=== PATIENT | female | born 1960 | race Caucasian/White ===

== ENCOUNTER 2018-03-01 18:26 | Emergency (ER) | payer OTHER ==
[2018-03-01] MEDS ORDERED: Ketorolac Tromethamine 30 MG/ML VIAL ONE (19:28)
[2018-03-01] MEDS ORDERED: Ondansetron ODT 4 MG TAB ONE (19:28)
[2018-03-01 19:34] LABS: #Eosinphils 0.9 thou/uL (0.0-0.7); #Lymphocytes 2.1 thou/uL (1.20-3.40); #Monocytes 0.6 thou/uL (0.11-0.59); #Neutrophils 2.7 thou/uL (1.40-6.50); %Basophils 0.6 % (0.0-1.0); %Eosinophils 14.7 % (0.0-10.0); %Lymphocytes 32.9 % (21.0-51.0); %Monocytes 9.3 % (0.0-10.0); %Neutrophils 42.6 % (42.0-75.0); Hemoglobin 11.8 g/dL (12.0-16.0); Large Platelets SLIGHT; MDiff Complete? YES; Mean Corpuscular Hemoglobin 29.5 pg (27.0-31.0); Mean Corpuscular Volume 89.4 fl (81.0-99.0); Mean Platelet Volume 9.4 fL (7.4-10.4); PLT Morphology Comment Appears Adequate; Platelet Count 209 thou/uL (130-400); RBC Distribution Width 12.3 % (11.5-14.5); RBC Morphology Normal; Red Blood Cell (RBC) Count 3.99 mill/uL (4.20-5.40); White Blood Cell (WBC) Count 6.3 thou/uL (4.8-10.8)
[2018-03-01 19:39] LABS: ALT (SGPT) 19 U/L (8-55); AST (SGOT) 25 U/L (5-34); Albumin 4.2 g/dL (3.5-5.0); Alkaline Phosphatase 138 U/L (40-150); Anion Gap 13 mmol/L (10-20); BUN (Urea Nitrogen) 12 mg/dL (9.8-20.1); Bilirubin, Total 0.3 mg/dL (0.2-1.2); Calc. Creatinine Clearance 0 mL/min (70-130); Calcium 9.4 mg/dL (7.8-10.44); Carbon Dioxide 27 mmol/L (22-29); Chloride 97 mmol/L (98-107); Estimated GFR-MDRD 68; Globulin 3.4 g/dL (2.4-3.5); Glucose 93 mg/dL (70-105); Potassium 5.1 mmol/L (3.5-5.1); Protein, Total 7.6 g/dL (6.0-8.3); Sodium 132 mmol/L (136-145)
[2018-03-01] MEDS ORDERED: Acetaminophen 500 MG TAB ONE (20:30)
--- NOTE | 2018-03-01 20:59 | RAD ---
CHEST ONE VIEW: HISTORY: Cough. FINDINGS: Portable one view chest shows a normal cardiac silhouette. The pulmonary vessels and hilum are nia l. No mass. No consolidation. No pneumothorax or osseous abnormalities. IMPRESSION: No acute cardiopulmonary process. POS: [facility]
== END 2018-03-01 21:25 | disposition home or self-care (01) ==
LOC: ERS 18:26
DX: B34.9 Viral infection, unspecified (principal); I10 Essential (primary) hypertension; F41.9 Anxiety disorder, unspecified; F32.9 Major depressive disorder, single episode, unspecified; F17.210 Nicotine dependence, cigarettes, uncomplicated; Z79.899 Other long term (current) drug therapy
CPT/HCPCS: 36415; 71045; 80053; 85025; 87804; 96372; J1885; Q0162

== ENCOUNTER 2018-11-26 15:43 | Inpatient (IN) | payer OTHER ==
[~2018-11-26 15:43] MED LIST: ISOVUE-370 76%-LOCM 1 ML ONE
[2018-11-26 16:33] LABS: #Basophils 0.1 thou/uL (0.0-0.2); #Eosinphils 0.3 thou/uL (0.0-0.7); #Lymphocytes 2.2 thou/uL (1.20-3.40); #Monocytes 0.4 thou/uL (0.11-0.59); #Neutrophils 4.4 thou/uL (1.40-6.50); %Eosinophils 4.5 % (0.0-10.0); %Lymphocytes 29.4 % (21.0-51.0); %Monocytes 5.5 % (0.0-10.0); %Neutrophils 59.6 % (42.0-75.0); Hemoglobin 10.9 g/dL (12.0-16.0); Mean Corpuscular HGB CONC 32.6 g/dL (32.0-36.0); Mean Corpuscular Hemoglobin 30.1 pg (27.0-31.0); Mean Corpuscular Volume 92.2 fL (78.0-98.0); Mean Platelet Volume 9.6 fL (7.4-10.4); Platelet Count 219 thou/uL (130-400); RBC Distribution Width 12.2 % (11.5-14.5); Red Blood Cell (RBC) Count 3.62 mill/uL (4.20-5.40); White Blood Cell (WBC) Count 7.3 thou/uL (4.8-10.8)
[2018-11-26 16:37] LABS: Bilirubin Negative (Negative); Blood, Urine Negative (Negative); Clarity CLEAR (Clear); Glucose, Urine (Dipstick) Negative (Negative); Leukocyte Negative (Negative); Nitrite Negative (Negative); Protein, Urine (Dipstick) Negative (Neg-Trace); Specific Gravity, Urine 1.028 (1.002-1.036); Urobilinogen 0.2 mg/dL (0.2-1.0)
--- NOTE | 2018-11-26 16:46 | RAD ---
CHEST 2 VIEWS: Date: 11/26/18 HISTORY: Dyspnea. FINDINGS: Cardiac silhouette and pulmonary vasculature are unremarkable. Mediastinum is midline. No confluent a ir space consolidation, pneumothorax, or pleural fluid are apparent. Leftward curvature of the upper thoracic spine. IMPRESSION: No active cardiopulmonary abnormalities are demonstrated. POS: [facility]
[2018-11-26 16:52] LABS: ALT (SGPT) 9 U/L (8-55); AST (SGOT) 12 U/L (5-34); Albumin 3.9 g/dL (3.5-5.0); Alkaline Phosphatase 112 U/L (40-150); Anion Gap 15 mmol/L (10-20); BUN (Urea Nitrogen) 20 mg/dL (9.8-20.1); Bilirubin, Total 0.2 mg/dL (0.2-1.2); CK (CPK) 100 U/L (29-168); Calc. Creatinine Clearance 0 mL/min (70-130); Calcium 9.4 mg/dL (7.8-10.44); Carbon Dioxide 23 mmol/L (22-29); Chloride 107 mmol/L (98-107); Estimated GFR-MDRD 65; Globulin 2.5 g/dL (2.4-3.5); Glucose 99 mg/dL (70-105); Potassium 4.7 mmol/L (3.5-5.1); Protein, Total 6.4 g/dL (6.0-8.3); Sodium 140 mmol/L (136-145)
[2018-11-26] MEDS ORDERED: Ondansetron PF 4 MG/2 ML Vial ONE (17:56)
[2018-11-26] MEDS ORDERED: Morphine 4 MG/ML VIAL ONE ×2 (17:57→19:46)
[2018-11-26] MEDS ORDERED: Clindamycin/D5W 600 mg/50 ml Premix Bag ONE (18:57)
--- NOTE | 2018-11-26 19:40 | PDOC.FPRHP ---
- History of Present Illness Chief Complaint: swelling under chin History of Present Illness: 58 yo F with PMH of paroxysmal afib, HTN, remote methamphetamine use, depression and anxiety presents for sharp pain in jaw and painful swelling under her chin that has been increasing in size for one week. It started as a spot on her gums below the lower left canine tooth, then developed into painful growth that is submental. She went to her PCP Dr. San 1 week ago, and was put on clindamycin which she has been taking. She then went to [facility] in [place], they told her to see her PCP. She then went to a doctor here in [facility], which sent her to Dr. Rios ENT. Dr. Banks sent her to [place] ED. She has headache, fever up to 101. Reports she has been able to eat soft foods, and has been drinking fluids. In the ED, CT showed abscess. Dr. Ying of [facility] was consulted. She was started on clinda 600 mg IV q6 hrs, and decadron 8 mg q8 hrs on his recommendations. - Allergies/Adverse Reactions Allergies Allergy/AdvReac Type Severity Reaction Status Date / Time ketorolac [From Toradol] Allergy Severe Short of Verified 11/27/18 04:17 Breath aspirin Allergy Mild Stomach Verified 11/27/18 04:17 Ache butorphanol [From Stadol] Allergy Unknown Anxiety Verified 11/27/18 06:07 Penicillins Allergy Unknown Rash Verified 11/27/18 04:17 - Home Medications Medication Instructions Recorded Confirmed Type Clindamycin [Cleocin] 300 mg PO Q6HR 11/27/18 11/27/18 History Cyclobenzaprine [Flexeril] 5 mg PO TID 11/27/18 11/27/18 History FLUoxetine HCl [Prozac] 60 mg PO DAILY 11/27/18 11/27/18 History HYDROcodone/Acetaminophen [[place] 1 tab PO Q4HR PRN 11/27/18 11/27/18 History 10-325 Tablet] Lisinopril 20 mg PO DAILY 11/27/18 11/27/18 History Metoprolol Succinate 100 mg PO DAILY 11/27/18 11/27/18 History Pantoprazole [Protonix] 40 mg PO DAILY 11/27/18 11/27/18 History clonazePAM [Clonazepam] 1 mg PO BID 11/27/18 11/27/18 History - History PMHx: Mitral valve prolapse, paroxysmal afib, HTN, depression and anxiety, chronic lower back pain, hx of stomach ulcers, hx of methamphetamine use, "stretched esophagus", Rt carpal tunnel PSHx: cholecystectomy, rhinoplasty, appendectomy, carpal tunnel, tonsillectomy FHx: [place] father age 50 colon cancer maternal grandmother Diabetes maternal grandmother Social: smokes 1/2 pack for past 27 years (13 PY), no alcohol or current drug use. Past use of methamphetamine. Denies IV drug use - Review of Systems General: reports: fever/chills, weight/appetite/sleep changes Eyes: denies: eye pain, vision changes ENT: reports: nasal congestion. denies: rhinorrhea Respiratory: reports: cough, congestion. denies: shortness of breath, exercise intolerance Cardiovascular: denies: chest pain, palpitation, edema Gastrointestinal: reports: diarrhea (earlier this week). denies: nausea, vomiting, constipation, abdominal pain, GI bleeding Genitourinary: denies: dysuria, other Skin: reports: other (painfull swelling under chin). denies: rashes Musculoskeletal: reports: pain, tenderness Neurological: reports: numbness (Rt hand intermittently (carpal tunnel)). denies: weakness Psychological: reports: anxiety, depression - Vital signs BP: [127/81] HR: [75] RR: [16] Tmax: [97.9] Pox: [100]% on [RA] Wt: [72.57 kg ] - Physical Exam Constitutional: awake, alert and oriented, well developed, other (In pain, holding face) HEENT: PERRLA, EOMI, conjunctiva clear, grossly normal hearing, MMM, oropharynx clear, other (very poor dentition, missing many teeth) Neck: supple, other (painful swelling under chin, tender and non-erythematous) Heart: RRR, normal S1/S2, no murmurs/rubs/gallops Lungs: CTAB, no respiratory distress, good air movement, no rales/rhonchi Abdomen: soft, non-tender, bowel sounds present Musculoskeletal: normal structure, normal tone, ROM grossly normal Neurological: no focal deficit, DTRs 2+ Skin: no rash/lesions, good turgor, capillary refill <2 seconds Heme/Lymphatic: no unusual bruising or bleeding, no purpura Psychiatric: normal mood and affect, good judgment and insight, intact recent and remote memory FMR H&P: Results - Labs Result Diagrams: 11/26/18 16:19 11/26/18 16:15 Lab results: WBC 7.3 thou/uL (4.8-10.8) 11/26/18 16:19 Hgb 10.9 g/dL (12.0-16.0) L 11/26/18 16:19 Hct 33.4 % (36.0-47.0) L 11/26/18 16:19 MCV 92.2 fL (78.0-98.0) 11/26/18 16:19 Plt Count 219 thou/uL (130-400) 11/26/18 16:19 Neutrophils % 59.6 % (42.0-75.0) 11/26/18 16:19 Sodium 140 mmol/L (136-145) 11/26/18 16:15 Potassium 4.7 mmol/L (3.5-5.1) 11/26/18 16:15 Chloride 107 mmol/L (98-107) 11/26/18 16:15 Carbon Dioxide 23 mmol/L (22-29) 11/26/18 16:15 BUN 20 mg/dL (9.8-20.1) 11/26/18 16:15 Creatinine 0.89 mg/dL (0.6-1.1) 11/26/18 16:15 Glucose 99 mg/dL (70-105) 11/26/18 16:15 Lactic Acid 1.4 mmol/L (0.5-2.2) 11/26/18 16:19 Calcium 9.4 mg/dL (7.8-10.44) 11/26/18 16:15 Total Bilirubin 0.2 mg/dL (0.2-1.2) 11/26/18 16:15 AST 12 U/L (5-34) 11/26/18 16:15 ALT 9 U/L (8-55) 11/26/18 16:15 Alkaline Phosphatase 112 U/L (40-150) 11/26/18 16:15 Creatine Kinase 100 U/L (29-168) 11/26/18 16:15 Serum Total Protein 6.4 g/dL (6.0-8.3) 11/26/18 16:15 Albumin 3.9 g/dL (3.5-5.0) 11/26/18 16:15 Urine Ketones Negative mg/dL (Negative) 11/26/18 16:30 Urine Blood Negative (Negative) 11/26/18 16:30 Urine Nitrite Negative (Negative) 11/26/18 16:30 Ur Leukocyte Esterase Negative (Negative) 11/26/18 16:30 - EKG Interpretation EKG: NSR - Radiology Interpretation Other Status: image reviewed by me, report reviewed by me Additional comment: small 9x10 mm retromandibular abscess Chest x-ray Status: image reviewed by me, report reviewed by me Additional comment: no acute process FMR H&P: A/P - Problem List (1) Abscess Current Visit: Yes Status: Acute Code(s): L02.91 - CUTANEOUS ABSCESS, UNSPECIFIED (2) Paroxysmal A-fib Current Visit: Yes Status: Chronic Code(s): I48.0 - PAROXYSMAL ATRIAL FIBRILLATION (3) HTN (hypertension) Current Visit: Yes Status: Chronic Code(s): I10 - ESSENTIAL (PRIMARY) HYPERTENSION (4) Anxiety and depression Current Visit: Yes Status: Chronic Code(s): F41.9 - ANXIETY DISORDER, UNSPECIFIED; F32.9 - MAJOR DEPRESSIVE DISORDER, SINGLE EPISODE, UNSPECIFIED (5) Chronic low back pain Current Visit: Yes Status: Chronic Code(s): M54.5 - LOW BACK PAIN; G89.29 - OTHER CHRONIC PAIN (6) History of gastric ulcer Current Visit: Yes Status: Chronic Code(s): Z87.19 - PERSONAL HISTORY OF OTHER DISEASES OF THE DIGESTIVE SYSTEM (7) Tobacco abuse Current Visit: Yes Status: Acute Code(s): Z72.0 - TOBACCO USE - Plan Retromandibular abscess most likely 2/2 dental caries - 9x10 mm on seen on soft tissue CT of neck - CBC and CMP wnl, vital signs stable - OMFS consulted, recommendations appreciated Dr Ying -IV clinda 600 mg q6 hrs, decadron 8 mg q8 hrs -NPO for possible surgery - Morphine for pain control - Tylenol for fever Atrial fibrillation - Continue home metoprolol HTN - Continue home lisinopril Anxiety/Depression - Continue home fluoxetine, hold home clonazepam Chronic back pain - Hold home flexeril as she has not been taking - Hold home hydrocodone Hx of gastric ulcers - Continue home protonix Tobacco abuse - Encourage cessation Diet: NPO for possible surgery DVT ppx: lovenox GI ppx: home protonix PCP: Dr. San in [place], [place] Dispo: admit to medical inpatient, LOS >2 midnights FMR H&P: Upper Level - Pertinent history 58 yo WF PMH tobacco abuse, a-fib, mitral valve prolapse, HTN, and remote history of meth use. Presents with 1 wk history of submandibular abscess. Denies fever. States lesion started along left lower jaw as tooth infection. Has multiple broken teeth and need to have them removed several years ago. Went to PCP who started on clinda and sent to ENT. ENT saw and sent to ER. ER: Labs, CT face, clinda, decadron, morphine, OMFS consultation. - Pertinent findings Vitals: WNL GEN: Mild discomfort. ENT: multiple broken teeth. fluctuant mass posterior to the chin. CV: RRR no murmur Pulm: CTA-B Labs: WNL CXR: No acute processes CT Face: 8 mm x 10 mm fluid collection behind mentum - Plan Date/Time: 11/26/181928 I, Robert Schwarz MD, have evaluated this patient and agree with findings/plan as outlined by sports intern resident. Pertinent changes/additions are listed here. 1. Submandibular abscess: Failed outpatient treatment. continue IV clinda and decadron per OMFS. NPO for upcoming I&D. Morphine PRN for pain. IV LR 125 mL/hr 2. HTN: home meds 3. A-fib: home meds 4. Tobacco abuse: encouraged cessation 5. Diet: NPO 6. PPx: SCD 7. CODE: FULL Dispo: inpatient, medical, >[address] Ngo. Addendum - Attending - Attending Attestation Date/Time: 11/26/18 2580 I personally evaluated the patient and discussed the management with Dr. Ludmila Chery. I agree with the History, Examination, Assessment and Plan documented above with any addition or exceptions noted below. The patient has had submandibular swelling, redness and pain for a week. She has seen multiple physicians before presenting to the ER. CT confirms an abscess. OMFS has been consulted and recommends IV clindamycin and decadron. She has poor dentition which is the likely source for the abscess.
[2018-11-26] MEDS ORDERED: Ondansetron ODT 4 MG TAB PO PRN (19:55)
[2018-11-26] MEDS ORDERED: Acetaminophen 325 MG TAB PO PRN (19:55)
[2018-11-26] MEDS ORDERED: Acetaminophen 650 MG Suppository PR PRN (19:55)
[2018-11-26] MEDS ORDERED: Ondansetron PF 4 MG/2 ML Vial IVP PRN (19:55)
[2018-11-26] MEDS ORDERED: Morphine 2 MG/ML SYRINGE SLOW IVP PRN (19:58)
[2018-11-26] MEDS ORDERED: Enoxaparin Sodium 40 MG/0.4 ML SYRINGE SC SCH ×2 (20:00→22:00)
--- NOTE | 2018-11-26 20:13 | CT ---
CONTRAST ENHANCED CT IMAGES SOFT TISSUE NECK 11/26/18 HISTORY: Abscess of mouth and chest pain. Contrast enhanced CT of the soft tissue neck obtained. Images demonstrate extensive loss of numerous teeth with extensive loss of the mandibular and maxillary molars. Some of the mandibular canines and incisors remain. These are extensively diseased with caries. There is a 9 x 10 mm area of soft tissue hypodensity with peripheral rim of enhancement posterior to the supraspinous foramen of the mid viraj ible. This is compatible with retromandibular abscess. No definite evidence of lymphadenopathy seen. Some of the subcutaneous fat anterior and lateral to the platysma appears to be somewhat edematous, m ost compatible with inflammatory process. No significant evidence of necrotic lymph nodes seen. No si gnificant marked lymphadenopathy seen. The thyroid gland is unremarkable. IMPRESSION: Small retromandibular abscess. I suspect that this abscess may have originated from extensive caries and periapical abscesses originating from the remaining incisor and canine caries of the mandible. POS: [facility]
[2018-11-26] MEDS ORDERED: Morphine 4 MG/ML VIAL SLOW IVP SCH (21:00)
[2018-11-27] MEDS: Morphine 4 MG/ML VIAL SLOW IVP PRN ×5 (00:44→21:33)
[2018-11-27] MEDS: Clindamycin/D5W 600 MG in Premix Bag 1 BAG IVPB SCH ×4 (02:14→20:44)
[2018-11-27 03:46] VITALS: BMI 28.3
--- NOTE | 2018-11-27 05:49 | PDOC.FM ---
- Subjective Subjective: Pt states that she is having some pain this morning in her jaw. She rates the pain as a sharp 8/10 that is worse with movement and talking. She denies fever, chills, nausea, vomiting, or SOB. - Objective MAR Reviewed: Yes Vital Signs & Weight: Vital Signs (12 hours) Temp Pulse Resp BP Pulse Ox 11/27/18 04:18 98.1 F 70 20 114/72 92 L 11/27/18 00:00 98.1 F 72 20 114/72 95 11/26/18 21:30 98.0 F 76 18 126/80 100 Weight Weight 74.843 kg I&O: 11/25/18 11/26/18 11/27/18 06:59 06:59 06:59 Intake Total 111 Balance 111 Result Diagrams: 11/26/18 16:19 11/26/18 16:15 Phys Exam - Physical Examination Constitutional: NAD HEENT: moist MMs poor dentition Neck: no JVD Moderate submandibular swelling, severe tenderness with palpation Warmth associated with swelling Respiratory: no wheezing, no rales, clear to auscultation bilateral Cardiovascular: RRR, no significant murmur, no rub Gastrointestinal: soft, non-tender, no distention, positive bowel sounds Musculoskeletal: no edema, pulses present Neurological: moves all 4 limbs Psychiatric: normal affect, A&O x 3 Skin: cap refill <2 seconds Dx/Plan (1) Abscess Code(s): L02.91 - CUTANEOUS ABSCESS, UNSPECIFIED Status: Acute (2) Tobacco abuse Code(s): Z72.0 - TOBACCO USE Status: Acute (3) Anxiety and depression Code(s): F41.9 - ANXIETY DISORDER, UNSPECIFIED; F32.9 - MAJOR DEPRESSIVE DISORDER, SINGLE EPISODE, UNSPECIFIED Status: Chronic (4) Chronic low back pain Code(s): M54.5 - LOW BACK PAIN; G89.29 - OTHER CHRONIC PAIN Status: Chronic (5) HTN (hypertension) Code(s): I10 - ESSENTIAL (PRIMARY) HYPERTENSION Status: Chronic (6) History of gastric ulcer Code(s): Z87.19 - PERSONAL HISTORY OF OTHER DISEASES OF THE DIGESTIVE SYSTEM Status: Chronic (7) Paroxysmal A-fib Code(s): I48.0 - PAROXYSMAL ATRIAL FIBRILLATION Status: Chronic - Plan Plan: This is a 58 yo female with a pmh of Afib, HTN, chronic back pain, anxiety/ depression Retromandibular abscess likely 2/2 dental caries -9x10 mm abscess seen on CT of neck -CBC and CMP WNL, afebrile overnight -Dr. Chen, OMFS consulted -IV clinda and decadron -NPO -Morphine PRN for pain Atrial fibrillation -Continue home metoprolol Normocytic Anemia -Hgb 10.9, asymptomatic HTN -Continue home lisinopril Anxiety/depression -Continue home fluoxetine Chronic back pain -Hold medications, morphine for pain as pt is NPO Hx of gastric ulcers -Continue home protonix Tobacco abuse -Encourage cessation Addendum - Attending - Attending Attestation Date/Time: 11/27/18 2924 I personally evaluated the patient and discussed the management with Dr. Bell. I agree with the History, Examination, Assessment and Plan documented above with any addition or exceptions noted below. The patient remains on IV clindamycin. OMFS has been consulted and we suspect will take the patient to the OR. Will f/u with their recommendations.
[2018-11-27] MEDS ORDERED: Morphine 4 MG/ML VIAL SLOW IVP PRN (07:00)
[2018-11-27] MEDS ORDERED: Acetaminophen 500 MG TAB PO SCH (07:00)
[2018-11-27] MEDS ORDERED: Morphine 4 MG/ML VIAL SLOW IVP SCH (07:00)
[2018-11-27] MEDS ORDERED: Ondansetron PF 4 MG/2 ML Vial ONE (13:56)
[2018-11-27] MEDS ORDERED: Glycopyrrolate 0.2 MG/ML 5 ML SYRINGE ONE (13:56)
[2018-11-27] MEDS ORDERED: Rocuronium Bromide 10 MG/ML (10ML VIAL) ONE (13:56)
[2018-11-27] MEDS ORDERED: PHENYLEPHRINE-NS 100 MCG/ML 10 ML SYRINGE ONE (13:56)
[2018-11-27] MEDS ORDERED: Dexamethasone 20 MG/5 ML VIAL ONE (13:56)
[2018-11-27] MEDS ORDERED: Lidocaine 1% PF 5 ML VIAL ONE (13:56)
[2018-11-27] MEDS ORDERED: PROPOFOL 200 MG/20 ML VIAL ONE (13:56)
[2018-11-27] MEDS ORDERED: Fentanyl 100 MCG/2 ML VIAL ONE ×3 (13:57→16:43)
[2018-11-27] MEDS ORDERED: Lidocaine 2% Jelly 5 ML TUBE ONE (14:33)
[2018-11-27] MEDS ORDERED: Midazolam HCl 2 mg/2 ml Vial ONE (14:33)
[2018-11-27] MEDS ORDERED: Lidocaine 1% w/Epinephrine 1:100K 20 ML VIAL ONE (15:09)
[2018-11-27] MEDS ORDERED: Chlorhexidine Gluconate 15 ML UDCUP SSP ONE (15:10)
[2018-11-27] MEDS ORDERED: Bacitracin Zinc Ointment 30 gm TUBE ONE (15:10)
[2018-11-27] MEDS ORDERED: Sodium Chloride 0.9% 10 ML ONE (15:12)
[2018-11-27] MEDS ORDERED: Promethazine HCl 25 MG/ML VIAL IM PRN (15:48)
[2018-11-27] MEDS ORDERED: Promethazine HCl 25 MG/ML VIAL SLOW IVP PRN (15:48)
[2018-11-27] MEDS ORDERED: Ondansetron HCl/PF 4 MG/2 ML Vial IVP PRN (15:48)
[2018-11-27] MEDS: Enoxaparin Sodium 40 MG/0.4 ML SYRINGE SC SCH (20:46)
[2018-11-27] MEDS: Chlorhexidine Gluconate 15 ML UDCUP SSP SCH (20:46)
[2018-11-28] MEDS: Clindamycin/D5W 600 MG in Premix Bag 1 BAG IVPB SCH ×4 (01:15→20:48)
[2018-11-28] MEDS: Morphine 4 MG/ML VIAL SLOW IVP PRN ×6 (01:25→23:31)
--- NOTE | 2018-11-28 05:47 | PDOC.FM ---
- Subjective Subjective: Pt reports she is staying comfortable today. She reports some stiffness and pain in her jaw. She reports tolerating some liquids overnight and wants to try more this morning. She denies chest pain, SOB, or abdominal pain. - Objective MAR Reviewed: Yes Vital Signs & Weight: Vital Signs (12 hours) Temp Pulse Resp BP Pulse Ox 11/28/18 04:00 98.6 F 88 20 149/79 H 94 L 11/28/18 00:00 98.1 F 92 20 130/78 95 11/27/18 20:00 98.7 F 93 20 138/84 93 L Weight Weight 74.843 kg I&O: 11/26/18 11/27/18 11/28/18 06:59 06:59 06:59 Intake Total 122 151 Balance 122 151 Result Diagrams: 11/26/18 16:19 11/26/18 16:15 Phys Exam - Physical Examination Constitutional: NAD HEENT: PERRLA, moist MMs Covered in bandage, obvious decreased ROM 2/2 pain Respiratory: no wheezing, no rales, clear to auscultation bilateral Cardiovascular: RRR 2/6 systolic murmur consistent with aortic stenosis Gastrointestinal: soft, non-tender, no distention, positive bowel sounds Musculoskeletal: no edema, pulses present Neurological: normal sensation, moves all 4 limbs Psychiatric: normal affect, A&O x 3 Skin: cap refill <2 seconds Dx/Plan (1) Abscess Code(s): L02.91 - CUTANEOUS ABSCESS, UNSPECIFIED Status: Acute (2) Tobacco abuse Code(s): Z72.0 - TOBACCO USE Status: Acute (3) Anxiety and depression Code(s): F41.9 - ANXIETY DISORDER, UNSPECIFIED; F32.9 - MAJOR DEPRESSIVE DISORDER, SINGLE EPISODE, UNSPECIFIED Status: Chronic (4) Chronic low back pain Code(s): M54.5 - LOW BACK PAIN; G89.29 - OTHER CHRONIC PAIN Status: Chronic (5) HTN (hypertension) Code(s): I10 - ESSENTIAL (PRIMARY) HYPERTENSION Status: Chronic (6) History of gastric ulcer Code(s): Z87.19 - PERSONAL HISTORY OF OTHER DISEASES OF THE DIGESTIVE SYSTEM Status: Chronic (7) Paroxysmal A-fib Code(s): I48.0 - PAROXYSMAL ATRIAL FIBRILLATION Status: Chronic - Plan Plan: This is a 58 yo female with a pmh of Afib, HTN, chronic back pain, anxiety/ depression, POD 1 I&D of chin abscess Retromandibular abscess likely 2/2 dental caries -9x10 mm abscess seen on CT of neck -POD I&D abscess, pending cultures preliminary shows Staph -afebrile overnight -Dr. Chen, [facility] [place] consulted -IV clinda, likely transition to PO -Clear liquid diet, likely advance today as tolerated -Morphine PRN for pain, will convert to PO medications Atrial fibrillation -Continue home metoprolol Normocytic Anemia -Hgb 10.9, asymptomatic HTN -Continue home lisinopril Anxiety/depression -Continue home fluoxetine Chronic back pain -Hold medications, morphine for pain as pt is NPO Hx of gastric ulcers -Continue home protonix Tobacco abuse -Encourage cessation Addendum - Attending - Attending Attestation Date/Time: 11/28/18 8213 I personally evaluated the patient and discussed the management with Dr. Bell. I agree with the History, Examination, Assessment and Plan documented above with any addition or exceptions noted below. Patient had I/D yesterday in the or with teeth extraction. No note is currently in [facility] from [facility] [place]. Will continue antibiotics. F/u with Dr. Ying's recs.
[2018-11-28] MEDS: Chlorhexidine Gluconate 15 ML UDCUP SSP SCH ×2 (08:33→20:48)
[2018-11-28] MEDS: HYDROcodone/Acetaminophen 10/325 mg Tablet PO PRN ×3 (13:07→22:10)
[2018-11-28] MEDS: Cyclobenzaprine 10 MG TAB PO SCH ×2 (14:19→20:49)
[2018-11-28] MEDS: clonazePAM 1 MG TAB PO SCH (20:49)
[2018-11-28] MEDS: Enoxaparin Sodium 40 MG/0.4 ML SYRINGE SC SCH (20:49)
[2018-11-29] MEDS: Clindamycin/D5W 600 MG in Premix Bag 1 BAG IVPB SCH ×3 (02:12→13:42)
[2018-11-29] MEDS: HYDROcodone/Acetaminophen 10/325 mg Tablet PO PRN ×4 (02:13→18:06)
[2018-11-29] MEDS: Morphine 4 MG/ML VIAL SLOW IVP PRN ×3 (06:05→14:48)
--- NOTE | 2018-11-29 06:05 | PDOC.FM ---
- Subjective Subjective: Ms. Dodd reports continued pain, currently 8/10 though she said the nurse just recently gave morphine. Drains removed last night. Tolerating liquids well. Has no other concerns. - Objective MAR Reviewed: Yes Vital Signs & Weight: Vital Signs (12 hours) Temp Pulse Resp BP Pulse Ox 11/29/18 04:36 97.7 F 83 20 148/82 H 93 L 11/29/18 00:33 97.8 F 88 20 143/88 H 93 L 11/28/18 21:36 98.8 F 84 20 144/82 H 96 11/28/18 20:00 96 Weight Weight 74.843 kg I&O: 11/27/18 11/28/18 11/29/18 06:59 06:59 06:59 Intake Total 896 268 1771 Balance 398 768 8093 Result Diagrams: 11/26/18 16:19 11/26/18 16:15 Phys Exam - Physical Examination Constitutional: NAD bandage clean and intact Respiratory: no wheezing, clear to auscultation bilateral Cardiovascular: RRR 3/6 systolic murmur Gastrointestinal: soft, positive bowel sounds Musculoskeletal: no edema Neurological: moves all 4 limbs Dx/Plan (1) Mandibular abscess Code(s): M27.2 - INFLAMMATORY CONDITIONS OF JAWS Status: Acute (2) Tobacco abuse Code(s): Z72.0 - TOBACCO USE Status: Acute (3) Anxiety and depression Code(s): F41.9 - ANXIETY DISORDER, UNSPECIFIED; F32.9 - MAJOR DEPRESSIVE DISORDER, SINGLE EPISODE, UNSPECIFIED Status: Chronic (4) Chronic low back pain Code(s): M54.5 - LOW BACK PAIN; G89.29 - OTHER CHRONIC PAIN Status: Chronic (5) HTN (hypertension) Code(s): I10 - ESSENTIAL (PRIMARY) HYPERTENSION Status: Chronic (6) History of gastric ulcer Code(s): Z87.19 - PERSONAL HISTORY OF OTHER DISEASES OF THE DIGESTIVE SYSTEM Status: Chronic (7) Paroxysmal A-fib Code(s): I48.0 - PAROXYSMAL ATRIAL FIBRILLATION Status: Chronic - Plan Plan: This is a 58 yo female with a pmh of Afib, HTN, chronic back pain, anxiety/ depression, POD 2 I&D of chin abscess. Retromandibular abscess likely 2/2 dental caries -9x10 mm abscess seen on CT of neck -POD I&D abscess, pending fluid cultures preliminary shows Staph. Blood cx no growth @ 48hrs -afebrile overnight -Dr. Chen, [facility] consulted -IV clinda, plan transition to PO -Clear liquid diet, likely advance as tolerated -Morphine PRN for pain, in addition to home norco 10 prn. Will need transition to PO regimen. Atrial fibrillation -Continue home metoprolol Normocytic Anemia -Hgb 10.9, asymptomatic HTN -Continue home lisinopril Anxiety/depression -Continue home fluoxetine Chronic back pain Hx of gastric ulcers -Continue home protonix Tobacco abuse -Encourage cessation Dispo: await OMFS recommendations, likely d/c home today on oral abx Addendum - Attending - Attending Attestation Date/Time: 11/29/18 7219 I personally evaluated the patient and discussed the management with Dr. Jones. I agree with the History, Examination, Assessment and Plan documented above with any addition or exceptions noted below. the patient's drain was removed yesterday. She still has some pain but overall is feeling better. The patient will d/c home on oral antibiotics and resume home pain meds.
[2018-11-29] MEDS: Cyclobenzaprine 10 MG TAB PO SCH ×2 (07:38→13:39)
[2018-11-29] MEDS: Chlorhexidine Gluconate 15 ML UDCUP SSP SCH (07:42)
[2018-11-29] MEDS: clonazePAM 1 MG TAB PO SCH (07:42)
[2018-11-29] MEDS ORDERED: Lisinopril 20 MG TAB PO SCH (09:00)
[2018-11-29] MEDS ORDERED: FLUoxetine HCl 20 MG CAP PO SCH (09:00)
[2018-11-29 15:29] VITALS: BP 154/92; TEMP 97.9
[2018-11-29] MEDS ORDERED: Ibuprofen 200 MG TAB PO SCH (16:30)
--- NOTE | 2018-11-30 03:53 | DIS ---
DATE OF ADMISSION: 11/26/2018 DATE OF DISCHARGE: 11/29/2018 ADMITTING ATTENDING: Geraldine Nog MD DISCHARGE ATTENDING: Geraldine Ngo MD RESIDENT: Nanette Jones DO CONSULT: Dr. Ying of [facility]. PROCEDURES: 11/26/2018, incision and drainage abscess of retromandibular space and removal of all teeth. PRIMARY DIAGNOSIS: Retromandibular abscess likely secondary to dental caries. SECONDARY DIAGNOSES: 1. Atrial fibrillation. 2. Normocytic anemia. 3. Hypertension. 4. Anxiety/depression. 5. Chronic back pain. 6. History of gastric ulcers. 7. Tobacco abuse. DISCHARGE MEDICATIONS: Lisinopril 20 mg p.o. daily. Metoprolol 100 mg p.o. daily. Fluoxetine 60 mg p.o. daily. Pantoprazole 40 mg p.o. daily. Clonazepam 1 mg p.o. b.i.d. Flexeril 5 mg p.o. t.i.d. [place] 10/325 one tab p.o. q.6 hours p.r.n. Chlorhexidine gluconate 15 mL mouth rinse b.i.d. Clindamycin 300 mg p.o. q.6 hours for 7 days, #28. DISCONTINUED MEDICATIONS: Clindamycin 300 mg p.o. q.6 hours. HISTORY OF PRESENT ILLNESS: This is a 58-year-old female with past medical history of paroxysmal atrial fibrillation, hypertension, depression, anxiety, remote methamphetamine use, presented for sharp pain in jaw and swelling under chin, worsening for past week. She failed outpatient treatment for one week with clindamycin. In the ED, CT scan showed abscess and Dr. Ying of [facility] was consulted. She was started on IV clindamycin and Decadron. Abscess was 9 x 10 mm seen on soft tissue CT of the neck. Labs and vital signs were within normal limits. The patient underwent incision and drainage of area in addition to extraction of teeth. Drains were removed from surgery site on the evening of 11/28/2018. The patient was able to tolerate clear liquids well at the time of discharge. Dr. Ying gave patient instructions on caring for wound in the outpatient setting until time of followup at his office in 1 week. The patient was discharged with p.o. antibiotics and mouth rinse to continue in the coming week. DISPOSITION: Stable. DISCHARGE INSTRUCTIONS: 1. Location: Home. 2. Diet: Advanced to regular as tolerated. 3. Activity: Elevate head of bed per recommendations by Dr. Ying. 4. Follow up with Dr. Ying in 1 week. Follow up with PCP within 1 week, Dr. San in [place], [place]. Job ID: [id number]
--- NOTE | 2018-11-30 11:41 | OP ---
DATE OF PROCEDURE: 11/27/2018 PREOPERATIVE DIAGNOSES: 1. Gross decay and infection of teeth 21, 22, 24 through 27. 2. Submental abscess and cellulitis. POSTOPERATIVE DIAGNOSES: 1. Gross decay and infection of teeth 21, 22, 24 through 27. 2. Submental abscess and cellulitis. PROCEDURES PERFORMED: 1. Removal of all remaining teeth including 21, 22, 24 through 27. 2. Transcervical incision and drainage of submental abscess. INDICATION: This is a 58-year-old female with long standing history of dental disease and need of removal of remaining teeth required some time. Over the last week, the patient developed increasing submental swelling and discomfort and was ultimately referred to ear, nose, and throat doctor by her primary care physician. She eventually saw Dr. Childs and was subsequently sent to the emergency room secondary to diagnosis of submental infection secondary to odontogenic source. The patient was brought to the operating room at this time for removal of infected teeth and drainage of the abscess. DESCRIPTION OF PROCEDURE: The patient was identified in the preoperative holding room, and all questions were answered. The patient was then taken to the operating room and transferred to the operating room table in supine position and intubated via an oral intubation procedure by the Anesthesia Service without complication. Surgical time-out was then performed. Local anesthetic with lidocaine and epinephrine was delivered to the bilateral mandible and to the submental region. A 15 blade was then used to make a skin incision in a submental space, and this dissection was taken down to the subcutaneous tissues throughout. At this time, a hemostat was then used to bluntly dissect superiorly toward the inferior border of the mandible, and eventually the abscess cavity was entered and opened. A significant amount of foul purulence was obtained, and cultures were sent of that purulence. The abscess cavity was further opened using blunt dissection and then copiously irrigated with bacitracin-infused normal saline. Attention was then turned back to the oral cavity, and a throat pack was placed. Oral cavity was then prepped with Peridex oral rinse. Teeth 21, 22, and 24 through 27 were then removed with combination of elevators and forceps. Sockets were curetted clean and irrigated copiously as well with bacitracin-infused normal saline. Couple of areas of irregular alveolars were then smoothened using combination of rongeurs and bone file. Closure of soft tissues was then obtained using 4-0 chromic gut suture in an interrupted fashion. The oral cavity was irrigated and suctioned free of debris at this time, and throat pack was removed. Attention was turned back to the submental region, where the abscess cavity was again verified to be fully opened and decompressed and further irrigation with the bacitracin-infused normal saline was undertaken this time to ensure adequate copious irrigation. The patient's face and neck were then cleaned, and the submental wound was kept open with the advancement of a quarter-inch [place] drain into the abscess cavity. This Marti drain was then sewed to the skin of the submental area with a nylon drain stitch. The drain was trimmed to length, and the neck was then dressed with Kerlix dressing. The patient was turned back over to anesthesia for emergence and extubation, which ensued without complication. ESTIMATED BLOOD LOSS: Minimal. INTRAVENOUS FLUIDS: Please see anesthetic record. COMPLICATIONS: None. IMPLANTS: None. DRAINS: Quarter-inch [place] drain to the submental space. SPECIMENS: Purulence from the submental space was sent for cultures. FINDINGS: Significant amount of foul purulence from the submental space and infected indicate teeth 21, 22, 24 through 27. DISPOSITION: The patient tolerated the procedure well. She was transferred to the recovery room in good condition. Job ID: [id number]
--- NOTE | 2018-11-30 12:44 | CON ---
DATE OF CONSULTATION: 11/27/2018 CONSULTING PHYSICIAN: Dr. Ngo with the Medicine Service. HISTORY OF PRESENT ILLNESS: This is a 58-year-old female, who was sent to the emergency room earlier today by Dr. Childs after having been seen in his clinic. The patient is originally from [place] and came to Dr. Childs for submental swelling. Dr. Childs felt that the submental swelling was secondary to odontogenic infection and directed the patient to the emergency room for further care. I was consulted for evaluation and management. PAST MEDICAL HISTORY: Mitral valve prolapse, atrial fibrillation, hypertension, depression and anxiety, chronic back pain, stomach ulcers, "stretched esophagus". PAST SURGICAL HISTORY: Cholecystectomy, rhinoplasty, appendectomy, carpal tunnel, tonsillectomy. HOME MEDICATIONS: 1. Clonazepam. 2. Protonix. 3. Metoprolol. 4. Lisinopril. 5. [place]. 6. Fluoxetine. 7. Cyclobenzaprine. 8. Clindamycin. ALLERGIES: TORADOL, ASPIRIN, PENICILLIN, AND STADOL. SOCIAL HISTORY: Positive for half a pack a day cigarettes for approximately 27 years. History of previous methamphetamine use, but denies drugs currently. Denies alcohol. REVIEW OF SYSTEMS: Reports significant pain and discomfort in the submental region. PHYSICAL EXAMINATION: GENERAL: Alert and oriented x3, no apparent distress. HEENT: The patient has [id number] cellulitis and edema in the submental space, which is exclusively tender to palpation. It is difficult to palpate any obvious fluctuant fluid collection, but this may be due to the overlying cellulitic component. Intraoral examination shows retained teeth 21, 22, and 24 through 27, all of which have advanced gross decay and multiple of which have mobility and significant attachment loss. There is no significant swelling or edema intraorally. The floor of mouth is generally soft without noticeable signs of cellulitis or edema. Mandibular range of motion is within normal limits. Oropharynx is within normal limits. The patient is edentulous in the maxillary arch. LABORATORY DATA: White blood cell count of 7.3, hemoglobin 10.9, and platelets 219. On chemistry panel, her glucose is 99. IMAGING DATA: CT scan of the neck shows a relatively small approximately 8 x 10 mm fluid collection in the submental space with overlying surrounding cellulitis and edema. CT scan also demonstrates the grossly decayed and diseased teeth with multiple areas of periapical radiolucencies of the teeth consistent with periapical infections. ASSESSMENT: 1. Submental abscess and cellulitis secondary to odontogenic source. 2. Grossly decayed and infected teeth 21, 22, 24 through 27. PLAN: 1. The patient will be taken to the operating room, ensured order for removal of all the remaining teeth and incision and drainage of the submental abscess. 2. The patient should be kept n.p.o. 3. Continue IV antibiotics and Decadron for now. Job ID: [id number]
[2018-12-01 10:23] LABS: Fungus Stain Final report (.)
== END 2018-11-29 18:26 | disposition home or self-care (01) | DRG 137 ==
LOC: ERS 15:43 → SJJU 18:50
PROVIDERS: ADMIT Family Medicine; ATTEND Family Medicine
PROC: 0J910ZZ Drainage of Face Subcutaneous Tissue and Fascia, Open Approach (ICD-10-PCS; principal; 2018-11-27)
PROC: 0CDXXZ1 Extraction of Lower Tooth, Multiple, External Approach (ICD-10-PCS; 2018-11-27)
DX: M27.2 Inflammatory conditions of jaws (principal); K12.2 Cellulitis and abscess of mouth; I48.0 Paroxysmal atrial fibrillation; I10 Essential (primary) hypertension; F32.9 Major depressive disorder, single episode, unspecified; F41.9 Anxiety disorder, unspecified; G89.29 Other chronic pain; M54.5 Low back pain; K02.9 Dental caries, unspecified; F17.210 Nicotine dependence, cigarettes, uncomplicated; Z88.0 Allergy status to penicillin; Z88.8 Allergy status to other drugs, medicaments and biological substances; Z90.49 Acquired absence of other specified parts of digestive tract; Z90.89 Acquired absence of other organs; Z98.890 Other specified postprocedural states; Z87.19 Personal history of other diseases of the digestive system
CPT/HCPCS: 36415; 70491; 71046; 80053; 81003; 82550; 83605; 84484; 85025; 86850; 86900; 86901; 87040; 87070; 87077; 87102; 87205; 87206; 93005; 96365; 96375; 96376; J1100; J1650; J2001; J2250; J2270; J2405; J2704; J3010; J3490; J7050; Q9966